=== PATIENT | male | born 1975 | race Caucasian/White ===

== ENCOUNTER 2019-09-25 16:00 | Emergency (ER) | payer OTHER ==
--- NOTE | 2019-09-25 16:57 | EDM.PDOC ---
ED HPI GENERAL MEDICAL PROBLEM - General Chief Complaint: Eye Problems Stated Complaint: SOMETHING IN LEFT EYE Time Seen by Provider: 09/25/19 16:40 Source of Information: Reports: Patient, Old Records, RN History Limitations: Reports: No Limitations - History of Present Illness INITIAL COMMENTS - FREE TEXT/NARRATIVE: 44 yo male felt like he got something in his L eye last night and again this morning still. His looked around early this afternoon and the eye has gradually felt better since. Says he is UTD on tetanus. Vision not impaired. Onset: Sudden Onset Date: 09/24/19 Duration: Day(s): (1), Improving Location: Reports: Face (L eye) Quality: Reports: Dull Severity: Mild Improves with: Reports: Other (? 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) Left Eye Pain Score (Numeric/FACES): 7 - Related Data Allergies Allergy/AdvReac Type Severity Reaction Status Date / Time bananas Allergy Itching Uncoded 09/25/19 16:16 Home Meds: Home Meds NK [No Known Home Meds] 09/25/19 [History] Past Medical History - Infectious Disease History Infectious Disease History: Reports: Chicken Pox - Past Surgical History HEENT Surgical History: Reports: Other (See Below) Other HEENT Surgeries/Procedures: septum surgery Social & Family History - Tobacco Use Smoking Status *Q: Never Smoker Second Hand Smoke Exposure: No - Caffeine Use Caffeine Use: Reports: Coffee - Alcohol Use Days Per Week of Alcohol Use: 0 - Recreational Drug Use Recreational Drug Use: No ED ROS GENERAL - Review of Systems Review Of Systems: See Below Constitutional: Reports: No Symptoms HEENT: Reports: Eye Pain (L eye). Denies: Eye Discharge, Vision Change ED EXAM GENERAL W FULL EYE - Physical Exam Exam: See Below Exam Limited By: No Limitations General Appearance: Alert, WD/WN, No Apparent Distress Eye Exam: Left Eye: Corneal Abrasion (at 12 O'clock there is a superficial oval abrasion. No FB seen. Upper lid everted. ), Bilateral Eye: Conjunctival Injection, EOMI, Normal Inspection, PERRL Visual Acuity (R) 20/: 30 With Correction: No Eyelids: Bilateral: Normal Appearance Conjunctiva & Sclera: Right: Discharge, Bilateral: Normal Appearance Cornea Exam: Bilateral: Normal Appearance Pupillary Size: Bilateral: 3 mm Ears: Normal External Exam, Normal Canal, Hearing Grossly Normal Nose: Normal Inspection, No Blood Throat/Mouth: Normal Lips, Normal Oropharynx, Normal Voice, No Airway Compromise Head: Atraumatic, Normocephalic Neck: Normal Inspection Course - Vital Signs Last Recorded V/S: Last Vital Signs Temp 36.2 C 09/25/19 16:23 Pulse 56 L 09/25/19 16:23 Resp 16 09/25/19 16:23 BP 125/72 09/25/19 16:23 Pulse Ox 97 09/25/19 16:23 Departure - Departure Time of Disposition: 16:58 Disposition: Home, Self-Care 01 Condition: Good Clinical Impression: Corneal abrasion Qualifiers: Encounter type: initial encounter Laterality: left Qualified Code(s): S05.02XA - Injury of conjunctiva and corneal abrasion without foreign body, left eye, initial encounter - Discharge Information *PRESCRIPTION DRUG MONITORING PROGRAM REVIEWED*: No *COPY OF PRESCRIPTION DRUG MONITORING REPORT IN PATIENT YURI: No Instructions: Corneal Abrasion Referrals: PCP,None [Primary Care Provider] - Forms: ED Department Discharge Additional Instructions: Ibuprofen and/or acetaminophen as needed for pain relief. Avoid rubbing the L eye. Recheck tomorrow if not fully healed by then. Avoid bright lights today. Sepsis Event Note - Evaluation Sepsis Screening Result: No Definite Risk - Focused Exam Vital Signs: Vital Signs Temp Pulse Resp BP Pulse Ox 09/25/19 16:23 36.2 C 56 L 16 125/72 97 Date Exam was Performed: 09/25/19 Time Exam was Performed: 16:52
== END 2019-09-25 17:04 | disposition home or self-care (01) ==
LOC: JP.ED 16:00
DX: S05.02XA Injury of conjunctiva and corneal abrasion without foreign body, left eye, initial encounter (principal); Z91.018 Allergy to other foods; X58.XXXA Exposure to other specified factors, initial encounter
CPT/HCPCS: 99283

== ENCOUNTER 2021-11-21 18:08 | Emergency (ER) | payer OTHER ==
[2021-11-21] MEDS ORDERED: Lidocaine 1% with EPINEPHrine 1:100,000 50 ML MDV INFILT STA (18:39)
== END 2021-11-21 20:23 | disposition home or self-care (01) ==
LOC: JP.ED 18:08
DX: S01.01XA Laceration without foreign body of scalp, initial encounter (principal); Z88.8 Allergy status to other drugs, medicaments and biological substances; W22.8XXA Striking against or struck by other objects, initial encounter
CPT/HCPCS: 12002; 70450; 99281; 99283-25